=== PATIENT | female | born 1990 | race Asian ===

== ENCOUNTER 2016-10-27 17:29 | Inpatient (IN) | payer SELFPAY ==
[~2016-10-27] VITALS: Ht 144.8 cm; Wt 67.4 kg
--- NOTE | ~2016-10-27 | ER ---
[facility] 26 Y [address] ROOM: [place] [address] [place] [facility] [place]: 10/27/2016 ER/Outpatient Report DISCHARGE DATE: FAMILY PHYSICIAN: PHYSICIAN, NO ATTENDING PHYSICIAN: Suzie LY Time of Arrival: 1729 hours. Time of Evaluation: 1740 hours. CHIEF COMPLAINT: Abdominal pain and fever. HISTORY OF PRESENT ILLNESS: This is a 26-year-old female who presents to the ER, who states she has not been feeling well for the past 4 days. She states that she started having dysuria and lower abdominal pain on Monday and then started having fever and vomiting Monday. She states that she has had no diarrhea with this and she never had anything like this before. She describes her pain as sharp in nature and is located more today on the left lower quadrant and suprapubic area. She states that she has noticed her urine has become discolored. She also feels like she is not keeping anything down. ALLERGIES: NO KNOWN ALLERGIES. MEDICATIONS: None. PAST MEDICAL HISTORY: Asthma. PAST SURGERIES: x1. SOCIAL HISTORY: Denies smoking, drug, or alcohol use. REVIEW OF SYSTEMS: All systems reviewed and were negative with the exception of those discussed in the HPI. PHYSICAL EXAMINATION: VITAL SIGNS: Height 4 feet and 9 inches stated, weight 66.3 kg taken, blood pressure is 99/67, pulse 129, respirations 20, temperature 102.8 degrees tympanically, and saturations 96% on room air. Tania Coma Score is 15. PATIENT'S NAME: STEPHENIE [facility] AGE: 26 Y [address] ROOM: [address] [address] [place] [facility] [place]: 10/27/2016 ER/Outpatient Report DISCHARGE DATE: FAMILY PHYSICIAN: PHYSICIAN, NO ATTENDING PHYSICIAN: Suzie LY GENERAL: Alert, calm, well-developed female, in mild distress. HEENT: Head: Normocephalic. She does display moist mucous membranes. Eyes: Pupils are equal and reactive to light. NECK: Supple. No lymphadenopathy. LUNGS: Clear to auscultation bilaterally. HEART: Tachycardic. Normal rhythm. ABDOMEN: Soft. She does have tenderness in her left lower quadrant greater than the right lower quadrant. She does have tenderness across her suprapubic area with palpation. No guarding. No rebound tenderness. She has good bowel sounds throughout. No masses are palpated. EXTREMITIES: No clubbing, cyanosis, or edema. She has full range of motion of all limbs. SKIN: Warm, dry, and intact. LABORATORY DATA AND X-RAYS: CBC: White count is 14.0, hemoglobin is 12.5, platelets 237, and ANC is 12.0. CMS: Sodium is 133, potassium is 3.2, glucose is 141, BUN is 8, creatinine is 0.9, total protein is 8.6, albumin 3.4, A/G ratio is 0.7. Liver enzymes were normal. Lactate is 1.2. Procalcitonin is 1.28. Urinalysis: Leukocytes 100 and nitrites positive. UA micro: White blood cells 20 to 50, red blood cells 5 to 10, epithelial 20 to 50, amorphous 1+, urine hCG was negative. CT scan shows no appendicitis, does show pyelonephritis on the left kidney, no bowel obstruction was seen. IMPRESSION: 1. Sepsis. 2. Pyelonephritis. 3. Hypokalemia. ASSESSMENT AND PLAN: We did start an IV here in the emergency room. We did culture her urine and did order 2 sets of blood cultures. The patient was given normal saline 30 mL/kg IV bolus here in the emergency room. We did give her 50 mcg of fentanyl for her pain and a total of 8 mg of Zofran for her nausea. We did start Cipro 400 mg IV after cultures were obtained. The patient does not have a primary care physician, therefore we called the Hospitalist Service and they will be admitting the patient for further care. The patient understands and agrees with care. STEPHANIE JAMES PA-C FOR MD MILAGROS HERRERA/debbie PATIENT'S NAME: JO-ANN CUELLO [facility] AGE: 26 Y [address] ROOM: [place] [address] [place] [facility] [place]: 10/27/2016 ER/Outpatient Report DISCHARGE DATE: FAMILY PHYSICIAN: LEILANI BUCKLEY ATTENDING PHYSICIAN: Suzie LY /[id number] d: 10/28/16 0114 t: 11/08/16 0633, OUTPATIENT REPORT
--- NOTE | ~2016-10-27 | DS ---
PATIENT'S NAME: JO-ANN CUELLO [facility] AGE: 26 Y [address] ROOM: [id number] [place], [place] [address] [place] [facility] [place] DATE: 10/27/2016 Discharge Summary DISCHARGE DATE: 10/31/2016 FAMILY PHYSICIAN: , NO ATTENDING PHYSICIAN: Suzie Seaman PRINCIPAL DIAGNOSES: 1. Severe Escherichia coli sepsis. 2. Acute left pyelonephritis. 3. Escherichia coli urinary tract infection. 4. Dehydration. 5. Nausea and vomiting. 6. Obesity, BMI 32.1. HOSPITAL COURSE: Please reference any of the admitting data to the history and physical as dictated by Dr. Suzie Seaman. Briefly, a 26-year-old female who presented to the emergency room with significant fever of greater than 104 with associated nausea, vomiting, and body ache. She did have an elevated white blood cell count of 14,000 and procalcitonin of 1.28. Her urinalysis appeared positive for cystitis. A CT scan showed appearance of acute pyelonephritis of the left kidney. She was admitted according to the sepsis order set with appropriate laboratory data collection, IV fluids, and antibiotics. She was also given other supportive cares for her nausea. 24 hours later, she continued to have fever, so fluoroquinolone was added. That afternoon, the patient experienced atypical chest discomfort. Cardiac workup was negative. It did resolve. Blood cultures returned as positive. By the next day, E. coli had grown in her urine as well as in her blood cultures. Her antibiotics were narrowed to Levaquin. Her white blood cell count had normalized, and her symptoms had nearly resolved. By the day of discharge, the patient was in good condition to return to home. DISCHARGE MEDICATIONS: 1. Levofloxacin 750 mg p.o. every day. 2. Florastor 250 mg p.o. twice daily or [id number] equivalent or may get an [id number] equivalent while on antibiotics or substitute with yoghurt twice daily while on antibiotics for C. difficile prophylaxis. PERTINENT LABORATORY FINDINGS: Initial white blood cell count of 14,000, had resolved to 7000 on day of discharge; most recent hemoglobin was 11.6; hematocrit 33.5; and a platelet count of 313. Chemistry panel showed a glucose 107, BUN 8, creatinine 0.7, sodium 140, potassium 3.4, chloride 107, PATIENT'S NAME: JO-ANN CUELLO [facility] AGE: 26 Y [address] [place] [facility] [place] [address] [place] [facility] [place] DATE: 10/27/2016 Discharge Summary DISCHARGE DATE: 10/31/2016 FAMILY PHYSICIAN: PHYSICIAN, NO ATTENDING PHYSICIAN: Suzie Seaman CO2 of 24, calcium of 8.4. Total protein of 7.5; albumin 2.7; AST of 35; ALT of 34; alkaline phosphatase of 147; total bilirubin of 0.3; phosphorus of 2.2, this was corrected from 0.8; magnesium of 2.2. Cardiac enzymes taken were negative. Procalcitonin trended 1.28, 0.93 within a 24-hour period. Lactate was 1.2. Urinalysis showed dick clear urine with specific gravity 1.020 with positive leukocytes, positive nitrites. Culture showed E. coli. Blood culture, one of two bottles was positive for E. coli. RADIOLOGIC IMAGING: CT scan showing acute left pyelonephritis. DISCHARGE CONDITION: Good. DISCHARGE INSTRUCTIONS: Diet should remain as tolerated. Activity as tolerated. To return to work on Monday as tolerates according to the patient's response to the patient's workload. A prescription was written accordingly. She will need to follow up with Dr. Yuli De Jesus in 1 to 2 weeks. An appointment was made. The patient was also given lifestyle modification education based upon her BMI of greater than 30. She was also given medication counseling including contraceptive therapy while on antibiotics. Above line of management was discussed with the patient, who stated complete understanding. All questions were answered with statements of satisfaction. I did contact Dr. De Jesus prior to the patient's dismissal. Thank you for allowing us to participate in the care of this patient while at [facility]. HARPER FUNEZ APRN, APRN FOR MD KAIN JOLLY/debbie /[id number] d: t: 11/01/16 0146, DISCHARGE SUMMARY
--- NOTE | ~2016-10-27 | HP ---
PATIENT'S NAME: STEPHENIE ROMAN [facility] AGE: 26 Y [address] ROOM: [place] [id number] [place] [facility] [place]: 10/27/2016 History & Physical DISCHARGE DATE: FAMILY PHYSICIAN: PHYSICIAN, NO ATTENDING PHYSICIAN: Suzie LY DATE OF SERVICE: CHIEF COMPLAINT: Fever. HISTORY OF PRESENT ILLNESS: The patient is a 26-year-old female with no significant past medical history, who presents here with fever and ache. The patient reports that since Monday she has been experiencing some dysuria, fever, and chills. The patient also reports of multiple episodes of nausea, vomiting, and generalized body ache. The patient reports that she had multiple nonbloody nausea and vomiting. Symptoms continued and the patient went to her primary care physician today, and was noted to have a fever of 104 and was told to go to the emergency department for further evaluation. In the emergency department, the patient was found to have a fever of 102.8 and elevated white blood cell count and procalcitonin. CT finding was done with a finding suggestive of acute pyelonephritis in the left kidney with no obstruction. The patient was given ciprofloxacin and IV fluids, and admitted to inpatient care. The patient denies any chest pain, abdominal pain, headache, vision change, shortness of breath, and diarrhea. PAST MEDICAL HISTORY: No significant medical history. PAST SURGICAL HISTORY: . FAMILY HISTORY: Mother has hypertension. Does not know much about father. SOCIAL HISTORY: Denies smoking. Occasionally drinks. She has 1 kid and has a partner. She works in a [employer]. REVIEW OF SYSTEMS: All systems have been reviewed and are negative except for what I mentioned in the HPI. PATIENT'S NAME: STEPHENIE ROMAN [facility] AGE: 26 Y [address] ROOM: [facility] [place], [place] [address] LOC[place]: [facility] [place] DATE: 10/27/2016 History & Physical DISCHARGE DATE: FAMILY PHYSICIAN: PHYSICIAN, NO ATTENDING PHYSICIAN: Suzie LY MEDICATIONS: There is no medication. PHYSICAL EXAMINATION: VITAL SIGNS: Temperature of 102.8, blood pressure 105/65, heart rate of 88, respiratory rate of 17, satting 98% on room air. GENERAL APPEARANCE: The patient alert and awake, in no acute distress. HEAD: Normocephalic, atraumatic. EYES: Extraocular muscle intact. NOSE: No nasal discharge. MOUTH: Moist oral mucosa. CHEST: Clear to auscultation bilaterally. HEART: Regular rate and rhythm. No murmurs, rubs, or gallops. ABDOMEN: Soft, nontender, and nondistended. SKIN: Warm to touch. COSTUMER ASSISTANT: The patient alert and oriented x3. Motor and sensory grossly intact. MUSCULOSKELETAL: Range of motion intact. LABORATORY DATA: 1. CT finding of acute pyelonephritis of the left kidney. No obstruction seen. 2. White blood cell count of 14, hemoglobin 12.5, platelet of 237. 3. BUN of 8, potassium of 3.2, CO2 of 23, and calcium of 8.3. UA shows positive of pyuria. Urine HCG undetectable. Procalcitonin of 1.28. ASSESSMENT AND PLAN: 1. Severe sepsis. Severe sepsis identified at 1734 hours. The patient had already lactate drawn, which was a normal blood culture before antibiotic was given and the patient was started on Cipro, broad-spectrum antibiotic. MAP is greater than 65 and there is no lactate elevation. The patient has received 30 mL/kg of IV fluids in the ED and we will start on Cipro. However, since the patient is presenting with severe sepsis, we will escalate antibiotic, we will change it to cefepime. Blood culture and urine culture are pending. We will continue IV fluid treatment. 2. Acute pyelonephritis of the left kidney. See problem #1. 3. Obesity, ongoing. 4. Hypokalemia, to supplement potassium. 5. Dehydration. Continue IV fluid. 6. Nausea and vomiting. We will have antiemetic medication, also treat underlying etiology. Greater than 60 minutes was spent on the patient care. Assessment and plan was discussed with the patient. We will admit the patient as inpatient due to severe sepsis. Code status on admission, full code. PATIENT'S NAME: JO-ANN CUELLO [facility] AGE: 26 Y [address] ROOM: [place] [address] [place] [facility] [place] DATE: 10/27/2016 History & Physical DISCHARGE DATE: FAMILY PHYSICIAN: PHYSICIAN, NO ATTENDING PHYSICIAN: Suzie LY MD Evita JOLLY /[id number] D: [id number] T: [id number] HISTORY & PHYSICAL
[2016-10-27 18:08] LABS: BLOOD URINE 150 /UL (NEGATIVE); GLUCOSE URINE NEGATIVE (NEGATIVE); KETONE URINE 5 mg/dL (NEGATIVE); LEUKOCYTES URINE 100 /UL (NEGATIVE); NITRITE URINE POSITIVE (NEGATIVE); PROTEIN URINE 100 mg/dL (NEGATIVE); TURBIDITY URINE CLEAR (CLEAR); UROBILINOGEN URINE 12 mg/dL (NORMAL)
[2016-10-27 18:11] LABS: COLOR URINE AMBER (YELLOW)
[2016-10-27 18:12] LABS: BASOPHIL % 0.1 %; HEMATOCRIT 35.6 % (33.0-46.0); HEMOGLOBIN 12.5 g/dL (11.0-15.0); IMMATURE GRANULOCYTE # 0.1 K/uL (0.0-0.3); IMMATURE GRANULOCYTE % 0.4 %; LYMPHOCYTE # 0.9 K/uL (0.8-4.0); LYMPHOCYTE % 6.4 %; MCH 31.6 pg (27.0-34.0); MCHC 35.1 gm/dL (32.0-36.5); MCV 90.1 fl (83.0-98.0); MONOCYTE # 1.1 K/uL (0.0-1.0); MONOCYTE % 7.6 %; MPV 9.9 fl (9.4-12.4); NEUTROPHIL % 85.5 %; NRBC % 0 /100WBC (0-0.00); PLATELET COUNT 237 K/uL (150-450); RBC 3.95 M/uL (3.50-5.00)
[2016-10-27 18:15] LABS: WBC URINE 20-50 #/HPF (NEGATIVE)
[2016-10-27 18:16] LABS: AMORPHOUS URINE 1+ (NEGATIVE); BACTERIA URINE FEW (NEGATIVE); EPITHELIAL URINE 20-50 #/HPF (NEGATIVE); MUCUS URINE 1+ (NEGATIVE)
[2016-10-27 18:31] LABS: ALBUMIN 3.4 gm/dL (3.5-5.0); ANION GAP 13.2 (10.0-19.0); CALCIUM 8.3 mg/dL (8.5-10.5); CREATININE 0.9 mg/dL (0.5-1.1); POTASSIUM 3.2 mMol/L (3.7-5.1); TOTAL BILIRUBIN 0.9 mg/dL (0.0-1.5); TOTAL PROTEIN 8.6 g/dL (6.0-8.4)
[2016-10-27 21:33] LABS: INR - (THERAPEUTIC) 1.09 (0.92-1.07); PROTIME 11.5 SECONDS (9.8-11.4)
[2016-10-28 06:07] LABS: BASOPHIL % 0.1 %; HEMATOCRIT 29.6 % (33.0-46.0); HEMOGLOBIN 10.5 g/dL (11.0-15.0); IMMATURE GRANULOCYTE % 0.4 %; LYMPHOCYTE # 0.8 K/uL (0.8-4.0); LYMPHOCYTE % 7.9 %; MCHC 35.5 gm/dL (32.0-36.5); MCV 93.1 fl (83.0-98.0); MONOCYTE % 8.9 %; MPV 10.2 fl (9.4-12.4); NEUTROPHIL # (ANC) 8.9 K/uL (1.8-7.8); NEUTROPHIL % 82.7 %; NRBC % 0 /100WBC (0-0.00); RBC 3.18 M/uL (3.50-5.00); RDW-CV 12.6 % (11.9-14.6); WBC 10.7 K/uL (4.0-11.0)
[2016-10-28 06:08] LABS: PLATELET COUNT 184 K/uL (150-450)
[2016-10-28 06:24] LABS: ALBUMIN 2.7 gm/dL (3.5-5.0); ALK PHOS 85 IU/L (33-138); ALT 21 IU/L (12-78); ANION GAP 9.8 (10.0-19.0); AST 21 IU/L (10-40); BLOOD UREA NITROGEN 5 mg/dL (6-24); CALCIUM 7.8 mg/dL (8.5-10.5); CHLORIDE 107 mMol/L (96-110); CO2 23 mMol/L (22-32); CREATININE 0.6 mg/dL (0.5-1.1); POTASSIUM 3.8 mMol/L (3.7-5.1); SODIUM 136 mMol/L (135-145); TOTAL BILIRUBIN 0.8 mg/dL (0.0-1.5)
[2016-10-28 15:11] LABS: ANION GAP 10.7 (10.0-19.0); BLOOD UREA NITROGEN 4 mg/dL (6-24); CALCIUM 7.8 mg/dL (8.5-10.5); CHLORIDE 107 mMol/L (96-110); CO2 22 mMol/L (22-32); CPK 81 IU/L (21-215); CREATININE 0.6 mg/dL (0.5-1.1); MAGNESIUM 1.9 mg/dL (1.8-2.6); POTASSIUM 3.7 mMol/L (3.7-5.1); SODIUM 136 mMol/L (135-145)
[2016-10-28 15:12] LABS: PHOSPHORUS 0.8 mg/dL (2.5-4.9)
[2016-10-29 05:41] LABS: BASOPHIL % 0.3 %; EOSINOPHIL % 0.3 %; HEMATOCRIT 28.2 % (33.0-46.0); HEMOGLOBIN 10.1 g/dL (11.0-15.0); IMMATURE GRANULOCYTE # 0.1 K/uL (0.0-0.3); IMMATURE GRANULOCYTE % 0.4 %; LYMPHOCYTE # 1.8 K/uL (0.8-4.0); MCH 33.8 pg (27.0-34.0); MCHC 35.8 gm/dL (32.0-36.5); MCV 94.3 fl (83.0-98.0); MONOCYTE # 1.2 K/uL (0.0-1.0); MONOCYTE % 10.2 %; MPV 10.3 fl (9.4-12.4); NEUTROPHIL # (ANC) 8.2 K/uL (1.8-7.8); NEUTROPHIL % 72.8 %; NRBC % 0 /100WBC (0-0.00); PLATELET COUNT 203 K/uL (150-450); RBC 2.99 M/uL (3.50-5.00); RDW-CV 13.2 % (11.9-14.6); WBC 11.3 K/uL (4.0-11.0)
[2016-10-29 05:58] LABS: ALBUMIN 2.4 gm/dL (3.5-5.0); ALK PHOS 92 IU/L (33-138); ALT 23 IU/L (12-78); ANION GAP 11.9 (10.0-19.0); AST 21 IU/L (10-40); BLOOD UREA NITROGEN 5 mg/dL (6-24); CALCIUM 8.2 mg/dL (8.5-10.5); CHLORIDE 107 mMol/L (96-110); CO2 23 mMol/L (22-32); CREATININE 0.6 mg/dL (0.5-1.1); POTASSIUM 3.9 mMol/L (3.7-5.1); SODIUM 138 mMol/L (135-145); TOTAL BILIRUBIN 0.7 mg/dL (0.0-1.5); TOTAL PROTEIN 6.9 g/dL (6.0-8.4)
[2016-10-30 04:51] LABS: HEMOGLOBIN 10.6 g/dL (11.0-15.0); MCH 34.4 pg (27.0-34.0); MCHC 36.6 gm/dL (32.0-36.5); MCV 94.2 fl (83.0-98.0); RBC 3.08 M/uL (3.50-5.00); RDW-CV 13.8 % (11.9-14.6); WBC 7.7 K/uL (4.0-11.0)
[2016-10-30 04:58] LABS: PLATELET COUNT 249 K/uL (150-450)
[2016-10-30 05:11] LABS: ALBUMIN 2.5 gm/dL (3.5-5.0); ALK PHOS 115 IU/L (33-138); ALT 24 IU/L (12-78); ANION GAP 11.6 (10.0-19.0); AST 21 IU/L (10-40); BLOOD UREA NITROGEN 6 mg/dL (6-24); CHLORIDE 108 mMol/L (96-110); CO2 23 mMol/L (22-32); CREATININE 0.5 mg/dL (0.5-1.1); POTASSIUM 3.6 mMol/L (3.7-5.1); SODIUM 139 mMol/L (135-145); TOTAL PROTEIN 7.2 g/dL (6.0-8.4)
[2016-10-30 05:17] LABS: TOTAL BILIRUBIN 0.4 mg/dL (0.0-1.5)
[2016-10-30 05:37] LABS: ABSOLUTE NEUTROPHIL CT (ANC) 3.9 K/uL (1.8-7.8); BANDED NEUTROPHIL # 0.6 K/uL (0.0-0.1); BANDED NEUTROPHILS % 8 %; LYMPHOCYTE # 3.2 K/uL (0.8-4.0); LYMPHOCYTE % 41 %; MONOCYTE # 0.5 K/uL (0.0-1.0); SEGMENTED NEUTROPHIL # 3.3 K/uL (1.8-7.8); SEGMENTED NEUTROPHIL % 43 %
[2016-10-31 03:52] LABS: HEMATOCRIT 33.5 % (33.0-46.0); HEMOGLOBIN 11.6 g/dL (11.0-15.0); MCH 31.5 pg (27.0-34.0); MCHC 34.6 gm/dL (32.0-36.5); MPV 9.9 fl (9.4-12.4); RBC 3.68 M/uL (3.50-5.00); RDW-CV 12.7 % (11.9-14.6); WBC 7.2 K/uL (4.0-11.0)
[2016-10-31 04:02] LABS: PLATELET COUNT 313 K/uL (150-450)
[2016-10-31 04:13] LABS: ALBUMIN 2.7 gm/dL (3.5-5.0); ALK PHOS 147 IU/L (33-138); ALT 34 IU/L (12-78); ANION GAP 12.4 (10.0-19.0); AST 35 IU/L (10-40); BLOOD UREA NITROGEN 8 mg/dL (6-24); CALCIUM 8.4 mg/dL (8.5-10.5); CHLORIDE 107 mMol/L (96-110); CO2 24 mMol/L (22-32); CREATININE 0.7 mg/dL (0.5-1.1); POTASSIUM 3.4 mMol/L (3.7-5.1); SODIUM 140 mMol/L (135-145); TOTAL PROTEIN 7.5 g/dL (6.0-8.4)
[2016-10-31 04:21] LABS: TOTAL BILIRUBIN 0.3 mg/dL (0.0-1.5)
[2016-10-31 05:48] LABS: ABSOLUTE NEUTROPHIL CT (ANC) 3.7 K/uL (1.8-7.8); BANDED NEUTROPHIL # 0.3 K/uL (0.0-0.1); BANDED NEUTROPHILS % 4 %; LYMPHOCYTE # 2.7 K/uL (0.8-4.0); LYMPHOCYTE % 37 %; MONOCYTE # 0.6 K/uL (0.0-1.0); SEGMENTED NEUTROPHIL # 3.5 K/uL (1.8-7.8); SEGMENTED NEUTROPHIL % 48 %
[2016-10-31] MEDS ORDERED: LEVAQUIN 750 M750 MG PO (11:45)
[2016-10-31] MEDS ORDERED: FLORASTOR250 MG PO (11:51)
== END 2016-10-31 12:45 | disposition disaster alternative care site (69) | DRG 872 ==
LOC: GMED 17:29 → GMSU 20:34
PROVIDERS: Internal Medicine; Physician Assistant; Physician Assistant Medical; ADMIT Internal Medicine
DX: A41.51 Sepsis due to Escherichia coli [E. coli] (principal); N10 Acute pyelonephritis; N12 Tubulo-interstitial nephritis, not specified as acute or chronic; E86.0 Dehydration; E87.6 Hypokalemia; R65.20 Severe sepsis without septic shock; E66.9 Obesity, unspecified; Z68.32 Body mass index [BMI] 32.0-32.9, adult; R11.2 Nausea with vomiting, unspecified
CPT/HCPCS: J0131; J0692; J0744; J1650; J1956; J2405; J3010; J3480; J7030; J7040; J7050; Q9967